=== PATIENT | female | born 1975 | race Caucasian/White ===

== ENCOUNTER 2020-10-14 17:57 | Emergency (ER) | payer BC ==
--- NOTE | 2020-10-14 18:49 | EDM.PDOC ---
ED HPI GENERAL MEDICAL PROBLEM - General Chief Complaint: Chest Pain Stated Complaint: CHEST PAIN Time Seen by Provider: 10/14/20 18:00 Source of Information: Reports: Patient, EMS, Family History Limitations: Reports: No Limitations - History of Present Illness INITIAL COMMENTS - FREE TEXT/NARRATIVE: 45-year-old female with no known cardiac history other than PVCs and hyperten rosa, [place] in the [place] when a tube got away and she swam out trying to get it. After coming back in she was playing around in the shallow water when she had a very sudden onset of a sharp knifelike pain in her left chest that hurts to breathe or move. She has had these before but they have always gone away in a few minutes, this was persistent for 15 minutes so she started to panic and worry and called the ambulance. She was in a normal sinus rhythm but hypertensive in route but normalized without treatment. When she got to the emergency room her pain was a "1" and she had no shortness of breath or pleuritic pain. The pain did not radiate, when she was having the pain it hurt to breathe but she did not feel short of breath, she had no nausea or vomiting or diaphoresis. Onset: Sudden Duration: Minutes: (Sharp pain lasted about 25 minutes) Location: Reports: Chest (Left chest and parasternal area) Quality: Reports: Sharp, Stabbing Associated Symptoms: Reports: No Other Symptoms Left Chest Pain Score (Numeric/FACES): 1 - Related Data Allergies Allergy/AdvReac Type Severity Reaction Status Date / Time Penicillins Allergy Hives Verified 10/14/20 18:01 Home Meds: Home Meds Aspirin 81 mg PO DAILY 10/14/20 [History] Losartan [Cozaar] 25 mg PO DAILY 10/14/20 [History] Metoprolol Succinate [Toprol XL] 50 mg PO BEDTIME 10/14/20 [History] Montelukast [Singulair] 10 mg PO BEDTIME 10/14/20 [History] Omeprazole 20 mg PO BEDTIME 10/14/20 [History] Past Medical History Cardiovascular History: Reports: Hypertension, Other (See Below) Other Cardiovascular History: PVCs Respiratory History: Reports: Asthma Gastrointestinal History: Reports: GERD Psychiatric History: Reports: Anxiety Dermatologic History: Reports: Eczema Social & Family History - Tobacco Use Tobacco Use Status *Q: Never Tobacco User - Caffeine Use Caffeine Use: Reports: Coffee - Recreational Drug Use Recreational Drug Use: No ED ROS GENERAL - Review of Systems Review Of Systems: See Below Constitutional: Denies: Fever, Chills, Decreased Appetite HEENT: Reports: No Symptoms Respiratory: Reports: Pleuritic Chest Pain Cardiovascular: Reports: Chest Pain. Denies: Palpitations GI/Abdominal: Reports: No Symptoms Skin: Reports: No Symptoms Neurological: Reports: No Symptoms Psychiatric: Reports: No Symptoms ED EXAM, GENERAL - Physical Exam Exam: See Below Exam Limited By: No Limitations General Appearance: Alert, No Apparent Distress, Anxious Head: Atraumatic Neck: Supple, Non-Tender Respiratory/Chest: Lungs Clear, Other (I could not reproduce chest wall pain with palpation) Cardiovascular: Regular Rate, Rhythm GI/Abdominal: Normal Bowel Sounds, Soft, Non-Tender Neurological: Alert, Oriented, No Motor/Sensory Deficits Psychiatric: Normal Affect, Normal Mood Skin Exam: Warm, Dry Course - Vital Signs Last Recorded V/S: Last Vital Signs Temp 96.6 F L 10/14/20 18:07 Pulse 81 10/14/20 18:27 Resp 12 10/14/20 18:27 BP 143/87 H 10/14/20 18:27 Pulse Ox 97 10/14/20 18:27 - Orders/Labs/Meds Orders: Active Orders 24 hr Category Date Time Status Chest 2V [CR] Routine Exams 10/14/20 18:26 Taken - Re-Assessments/Exams Free Text/Narrative Re-Assessment/Exam: 10/14/20 18:48 A 2 view chest x-ray was obtained which was normal. We discussed the possibility of labs including a troponin in 4 hours but this was more likely musculoskeletal pain such as esophageal or chest wall spasm. She decided to come back if pain recurs and is persistent but will not pursue any further work- up at this time since she is feeling back to baseline. Departure - Departure Time of Disposition: 18:56 Disposition: Home, Self-Care 01 Clinical Impression: Chest pain, atypical - Discharge Information Instructions: Nonspecific Chest Pain, Adult, [id number] Referrals: PCP,None [Primary Care Provider] - Forms: ED Department Discharge Care Plan Goals: Increase activity as tolerated, continue your current medications and return anytime if pain recurs and is persistent or you develop other concerns. Sepsis Event Note (ED) - Evaluation Sepsis Screening Result: No Definite Risk - Focused Exam Vital Signs: Vital Signs Temp Pulse Resp BP Pulse Ox 10/14/20 18:27 81 12 143/87 H 97 10/14/20 18:07 96.6 F L 90 16 172/85 H 97 - My Orders Last 24 Hours: My Active Orders 10/14/20 18:26 Chest 2V [CR] Routine - Assessment/Plan Last 24 Hours: My Active Orders 10/14/20 18:26 Chest 2V [CR] Routine
--- NOTE | 2020-10-16 10:33 | CR ---
CHEST: 2 view CLINICAL HISTORY:Dyspnea COMPARISON:None FINDINGS: The heart size, pulmonary vascularity and hilar structures are normal. No infiltrate effusion or pneumothorax is seen. IMPRESSION: No acute cardiopulmonary process.
== END 2020-10-14 18:56 | disposition home or self-care (01) ==
LOC: JP.ED 17:57
DX: R07.89 Other chest pain (principal); R00.2 Palpitations; I10 Essential (primary) hypertension; K21.9 Gastro-esophageal reflux disease without esophagitis; Z79.82 Long term (current) use of aspirin; Z79.899 Other long term (current) drug therapy; Z88.0 Allergy status to penicillin
CPT/HCPCS: 71046; 71046-26; 99285-25